=== PATIENT | female | born 1960 | race Caucasian/White ===

== ENCOUNTER → 2016-04-10 | Day surgery (SDC) | payer MEDICAID ==
[~2016-04-10] MED LIST: LACTATED RINGER'S 1000 ML INJ 1,000 ML ONE; MOTR200T47 PO; OXYC-360 PO; PROPOFOL 200 MG/20 ML AMP IV ONE; PROZ20CA11 PO; TRAZ50TA78 PO
== END | disposition home or self-care (01) ==
LOC: ESDC 07:27
PROVIDERS: ATTEND Internal Medicine Gastroenterology
DX: Z12.11 Encounter for screening for malignant neoplasm of colon (principal); K62.1 Rectal polyp; K57.30 Diverticulosis of large intestine without perforation or abscess without bleeding; K21.9 Gastro-esophageal reflux disease without esophagitis; K29.70 Gastritis, unspecified, without bleeding; K29.80 Duodenitis without bleeding; K22.9 Disease of esophagus, unspecified
CPT/HCPCS: 00740; 00810; 43239; 45380; 88305; J3010; J7120